=== PATIENT | female | born 1930 | race Caucasian/White ===

== ENCOUNTER 2021-01-15 12:29 | Emergency (ER) | payer MEDICARE, OTHER ==
[~2021-01-15] VITALS: Ht 165.1 cm; Wt 93.4 kg
[~2021-01-15 12:29] MED LIST: CALTRATE 600 +1 EAC1 PO; DAILY MULTIPLE1 EACH PO; DILTIAZEM HCL120 MG PO; FISH OIL 1,0001 EAC3 PO; LEVOTHYROXINE125 MCG PO; LIPITOR20 MG PO; OMEPRAZOLE20 MG PO; TRAZODONE HCL50 MG PO
[2021-01-15] MEDS ORDERED: SERTRALINE HCL50 MG PO (12:40)
[2021-01-15] MEDS ORDERED: LOSARTAN POTASS25 MG PO (12:40)
[2021-01-15] MEDS ORDERED: HYDROCODON-ACE1 EA10 PO (16:59)
== END 2021-01-15 17:29 | disposition home or self-care (01) ==
LOC: ED 12:29
DX: S52.615A Nondisplaced fracture of left ulna styloid process, initial encounter for closed fracture (principal); S52.502A Unspecified fracture of the lower end of left radius, initial encounter for closed fracture; W18.30XA Fall on same level, unspecified, initial encounter; E03.9 Hypothyroidism, unspecified; I10 Essential (primary) hypertension; Z88.1 Allergy status to other antibiotic agents; Z79.899 Other long term (current) drug therapy
CPT/HCPCS: 25605; 73110; 99152; 99283-25; J2704

== ENCOUNTER 2021-01-21 05:40 | Day surgery (SDC) | payer MEDICARE, OTHER ==
--- NOTE | ~2021-01-21 | OR ---
[facility] [address] [place], [place] [address] Draft DATE OF OPERATION: 01/21/2021 SURGEON: Husam Matos MD PREOPERATIVE DIAGNOSIS: Displaced right distal radius fracture, comminuted. POSTOPERATIVE DIAGNOSIS: Displaced right distal radius fracture, comminuted. PROCEDURE PERFORMED: Closed reduction percutaneous pinning, right distal radius. CIDER PRESS OPERATOR: None. ANESTHESIA: General. BLOOD LOSS: Minimal. IMPLANTS: Three 1.6 mm K-wires. BRIEF HISTORY: Pretty is an 89-year-old female who suffered a ground level fall. She was reduced in the emergency room partially and presented to my office with continued complaints of pain. She had no neurologic symptoms. Risks and benefits of operative treatment were discussed with her and she elected to proceed. DESCRIPTION OF PROCEDURE: Once consent was obtained, she was taken to the operating room. After adequate anesthesia, she was left on the preoperative bed. The C-arm was brought in and the fracture was reduced. Her arm was then prepped and draped in a standard sterile fashion and the reduction was re-obtained. The 1st K-wire was passed from the radial styloid percutaneously across the fracture engaging the body of the radius. A 2nd was placed dorsally. She had a fair amount of dorsal comminution. The 3rd was placed in the dorsal radial aspect of the radius. All three pins were checked using image intensifier and found to be appropriately placed and the fracture was well reduced. The three pins PATIENT NAME: PRETTY LAY OPERATIVE REPORT DATE OF : [birth year] REPORT #: [id number] PHYSICIAN: HUSAM MATOS MD PCP: GEORGE ARTHUR DO REPORT IS CONFIDENTIAL AND NOT TO BE RELEASED WITHOUT AUTHORIZATION [address] [place] [address] Draft were cut and bent and the pins were dressed with sterile gauze, sterile cast padding and a radial gutter splint. She tolerated the procedure well. All sponge, needle, and instrument counts were correct. Husam Matos MD BA/MICHAELL /[id number] Copies: ~ PATIENT NAME: PRETTY LAY OPERATIVE REPORT DATE OF : [birth year] REPORT #: [id number] PHYSICIAN: HUSAM MATOS MD PCP: GEORGE ARTHUR DO REPORT IS CONFIDENTIAL AND NOT TO BE RELEASED WITHOUT AUTHORIZATION
[~2021-01-21 05:40] MED LIST changes: +HYDROCODON-ACE1 EA10 PO; +LOSARTAN POTASS25 MG PO; +SERTRALINE HCL50 MG PO
--- NOTE | 2021-01-21 06:47 | NUR ---
0625-SWABBED BOTH NARES FOR RAPID COVID TEST
[2021-01-21] MEDS ORDERED: HYDROCODON-ACE1 EA11 PO (10:31)
--- NOTE | 2021-01-21 11:11 | NUR ---
01/21/21 1111 Chelsey Matos 1030 PT PACU AWAKE BUT DROUSY REPORTS SHE IS VERY THIRSTY
--- NOTE | 2021-01-21 13:05 | EKG ---
[facility] [address] [facility] [place], [place] [address] Signed Sinus rhythm with frequent and consecutive premature ventricular complexes Septal infarct , age undetermined Abnormal ECG No previous ECGs available Confirmed by ADITYA STARK MD ([id number]) on 01/21/2021 1:05:43 PM Electronically Signed By: ADITYA STARK MD 01/21/21 1305 PATIENT NAME: TONYA LAY Electrocardiogram DATE OF : [birth year] PHYSICIAN: ADITYA STARK MD REPORT #: [id number] REPORT IS CONFIDENTIAL AND NOT TO BE RELEASED WITHOUT AUTHORIZATION
== END 2021-01-21 11:35 | disposition home or self-care (01) ==
LOC: DS 05:40
PROVIDERS: ATTEND Specialist
PROC: 0PSH34Z Reposition Right Radius with Internal Fixation Device, Percutaneous Approach (ICD-10-PCS; principal; 2021-01-21 10:45)
DX: S52.501A Unspecified fracture of the lower end of right radius, initial encounter for closed fracture (principal); W18.30XA Fall on same level, unspecified, initial encounter; G89.18 Other acute postprocedural pain; Y92.009 Unspecified place in unspecified non-institutional (private) residence as the place of occurrence of the external cause; Z20.822 Contact with and (suspected) exposure to COVID-19
CPT/HCPCS: 72100; 73100; 73502; 93005; 93010; C9803; J1100; J2001; J2704; J2795